=== PATIENT | female | born 1995 | race African-American/Black ===

== ENCOUNTER 2025-01-11 22:16 | Inpatient (IN) | payer MEDICAID, OTHER ==
[2025-01-11 23:14] VITALS: BMI 45.1
[2025-01-12] MEDS ORDERED: Lidocaine 1% (PF) 30 ML VIAL SC PRN (01:54)
[2025-01-12] MEDS ORDERED: Carboprost 250 MCG/ML AMP IM PRN (01:54)
[2025-01-12] MEDS ORDERED: Acetaminophen 500 MG TAB PO PRN (01:54)
[2025-01-12] MEDS ORDERED: Tranexamic Acid 1,000 MG/10 ML VIAL IVP PRN (01:54)
[2025-01-12] MEDS ORDERED: Ondansetron PF 4 MG/2 ML Vial IVP PRN ×4 (01:54→16:02)
[2025-01-12] MEDS ORDERED: hydrALAZINE 20 MG/ML VIAL SLOW IVP PRN ×2 (01:54→15:38)
[2025-01-12] MEDS ORDERED: Diphenoxylate HCl/Atropine Tablet PO PRN ×2 (01:54)
[2025-01-12] MEDS ORDERED: Ibuprofen 800 MG TAB PO PRN (01:54)
[2025-01-12] MEDS ORDERED: Oxytocin 30 units/NS 500 ML 500 ML IV SCH ×2 (02:00→15:45)
[2025-01-12 02:39] LABS: Hematocrit 37.1 % (34.9-44.5); Hemoglobin 11.2 g/dL (12.0-15.5); Mean Corpuscular Hemoglobin 20.3 pg (27.0-33.0); Mean Corpuscular Volume 67.3 fL (81.6-98.3); Platelet Count 241 10x3/uL (150-450); Red Blood Cell (RBC) Count 5.51 10x6/uL (3.90-5.03); White Blood Cell (WBC) Count 8.74 10x3/uL (3.5-10.5)
[2025-01-12 03:01] LABS: Hep B Surf Ag - L&D Non-Reactive S/CO (NonReactive)
[2025-01-12 03:02] LABS: Syphilis Antibody Index 0.05 S/CO (<1.00 Non-Reactive)
[2025-01-12] MEDS ORDERED: Bupivacaine 0.25% HCL 30 ML VIAL ONE (07:00)
[2025-01-12] MEDS: fentaNYL/Ropivacaine Epidural 100 ML ONE (08:47)
[2025-01-12] MEDS: Oxytocin 30 units/NS 500 ML 500 ML IV SCH (13:42)
[2025-01-12] MEDS ORDERED: Bicitra 30 ML UDCUP PO PRN (14:08)
[2025-01-12] MEDS: Famotidine/PF 20 mg/2ml Vial SLOW IVP PRN (14:15)
[2025-01-12] MEDS: Azithromycin 500 MG in Sodium Chloride 0.9% 250 ML 250 ML IVPB SCH (14:40)
[2025-01-12] MEDS: Methylergonovine 0.2 MG/ML VIAL IM PRN (14:41)
[2025-01-12 14:59] LABS: Analyzer IN Cardio CS NICU; RapidComm Collect By OR nurse
[2025-01-12 15:03] LABS: Analyzer IN Cardio CS NICU; RapidComm Collect By OR Nurse; pH (Cord, venous) 7.327 (7.250-7.350)
[2025-01-12] MEDS ORDERED: Simethicone Chewable 80 MG TAB PO PRN (15:38)
[2025-01-12] MEDS ORDERED: HYDROmorphone 0.5 MG/0.5 ML SYRINGE SLOW IVP PRN (16:02)
[2025-01-12] MEDS ORDERED: Meperidine HCl/PF 25 MG (1 mL) VIAL SLOW IVP PRN (16:02)
[2025-01-12] MEDS ORDERED: diphenhydrAMINE 50 MG/ML VIAL IVP PRN (16:02)
[2025-01-12] MEDS ORDERED: Ketorolac Tromethamine 30 MG (1 mL) VIAL IVP SCH (16:15)
[2025-01-12] MEDS ORDERED: Communication Order-Pharmacy FS SCH (16:15)
[2025-01-12 16:29] LABS: Platelet Count 246 10x3/uL (150-450)
[2025-01-12 16:33] LABS: Hematocrit 31.3 % (34.9-44.5); Hemoglobin 9.4 g/dL (12.0-15.5); Mean Corpuscular Hemoglobin 20.5 pg (27.0-33.0); Mean Corpuscular Volume 68.2 fL (81.6-98.3); Red Blood Cell (RBC) Count 4.59 10x6/uL (3.90-5.03); White Blood Cell (WBC) Count 20.46 10x3/uL (3.5-10.5)
[2025-01-12 16:37] LABS: Fibrinogen 429.0 mg/dL (220-504); INR-International Normal Ratio 1.0; PTT 26.8 sec (22.0-33.0); Prothrombin Time 10.8 sec (9.5-12.1)
[2025-01-12 17:13] LABS: #Basophils 0.04 10x3/uL (0.0-0.2); #Eosinophils Less than 0.03 10x3/uL (0.0-0.5); #Monocytes 0.89 10x3/uL (0.0-1.1); #Neutrophils 18.31 10x3/uL (1.5-8.4); %Basophils 0.2 % (0.0-2.0); %Eosinophils 0.0 % (0.0-6.0); %Lymphocytes 5.1 % (18.0-47.0); %Monocytes 4.3 % (0.0-10.0); %Neutrophils 89.5 % (40.0-75.0); Anisocytosis MODERATE=16-30 cells (100X) (0-5/hpf); MDiff Complete? YES; Microcytosis MODERATE=15-30 cells (100X) (0-5/hpf); Platelet Adequacy Comment Appears Adequate
[2025-01-12] MEDS ORDERED: Oxytocin 10 UNITS/ML VIAL ONE (18:00)
[2025-01-12] MEDS ORDERED: PROPOFOL 200 MG/20 ML VIAL ONE (18:00)
[2025-01-12] MEDS ORDERED: PHENYLEPHRINE-NS 100 MCG/ML 10 ML SYRINGE ONE (18:00)
[2025-01-12 20:40] LABS: Hematocrit 31.2 % (34.9-44.5); Hemoglobin 9.5 g/dL (12.0-15.5); Mean Corpuscular Hemoglobin 21.5 pg (27.0-33.0); Mean Corpuscular Volume 70.6 fL (81.6-98.3); Platelet Count 231 10x3/uL (150-450); Red Blood Cell (RBC) Count 4.42 10x6/uL (3.90-5.03); White Blood Cell (WBC) Count 16.27 10x3/uL (3.5-10.5)
[2025-01-12] MEDS: Ferrous Sulfate 325 MG TAB PO SCH (20:59)
[2025-01-12] MEDS ORDERED: Ibuprofen 800 MG TAB PO SCH (22:00)
[2025-01-12] MEDS: Dexamethasone 10 MG/ML VIAL ONE (22:55)
[2025-01-12] MEDS: Oxytocin 10 UNITS/ML VIAL ONE ×2 (22:55→22:56)
[2025-01-12] MEDS: CEFAZOLIN 2 GM VIAL ONE (22:55)
[2025-01-12] MEDS: SUGAMMADEX SODIUM 200 MG/2 ML VIAL ONE (22:55)
[2025-01-12] MEDS: Azithromycin 500 MG VIAL ONE (22:55)
[2025-01-13 03:47] LABS: Hematocrit 28.9 % (34.9-44.5); Hemoglobin 8.9 g/dL (12.0-15.5); Mean Corpuscular Hemoglobin 21.4 pg (27.0-33.0); Mean Corpuscular Volume 69.6 fL (81.6-98.3); Platelet Count 215 10x3/uL (150-450); Red Blood Cell (RBC) Count 4.15 10x6/uL (3.90-5.03); White Blood Cell (WBC) Count 16.25 10x3/uL (3.5-10.5)
[2025-01-13] MEDS: Ketorolac Tromethamine 30 MG (1 mL) VIAL IVP PRN (05:04)
[2025-01-13] MEDS: HYDROcodone/Acetaminophen 5/325 mg Tablet PO PRN (08:10)
[2025-01-13] MEDS: Ibuprofen 800 MG TAB PO SCH (20:35)
[2025-01-14 11:29] VITALS: BP 116/65; TEMP 98.4
== END 2025-01-14 16:55 | disposition home or self-care (01) | DRG 787 ==
LOC: CSHLD/OP 22:16 → CSHLD 01-12 02:11 → CSHPP 01-12 19:40
PROVIDERS: ADMIT Obstetrics & Gynecology; ATTEND Obstetrics & Gynecology
PROC: 10D00Z1 Extraction of Products of Conception, Low, Open Approach (ICD-10-PCS; principal; 2025-01-12)
PROC: 4A1HXCZ Monitoring of Products of Conception, Cardiac Rate, External Approach (ICD-10-PCS; 2025-01-12)
PROC: 30233N1 Transfusion of Nonautologous Red Blood Cells into Peripheral Vein, Percutaneous Approach (ICD-10-PCS; 2025-01-12)
DX: O48.0 Post-term pregnancy (principal); O72.1 Other immediate postpartum hemorrhage; O99.43 Diseases of the circulatory system complicating the puerperium; O99.214 Obesity complicating childbirth; O34.13 Maternal care for benign tumor of corpus uteri, third trimester; O76 Abnormality in fetal heart rate and rhythm complicating labor and delivery; Z37.0 Single live birth; Z3A.40 40 weeks gestation of pregnancy
CPT/HCPCS: 36415; 36430; 51702; 82805; 85027; 85384; 85610; 85730; 86780; 86850; 86900; 86901; 87340; 88307; 99285; J0330; J0456; J0595; J0665; J1100; J1308; J1885; J2210; J2250; J2274; J2550; J2590; J2704; J3010; J3105; J7050; J7120; P9016